=== PATIENT | male | born 2000 | race Two or more races ===

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

== ENCOUNTER 2022-06-20 14:21 | Emergency (ER) | payer OTHER ==
[2022-06-20 14:32] VITALS: BP 116/69; PULSE 79; RESP 18; TEMP 98; BMI 19.5
[2022-06-20] MEDS ORDERED: DIPHTH,PERTUSS(ACELL),TET 0.5 ML DISP.SYRIN IM ONE ×2 (15:15→15:20)
== END 2022-06-20 15:53 | disposition home or self-care (01) ==
LOC: JERFT 14:21
PROC: 0HQGXZZ Repair Left Hand Skin, External Approach (ICD-10-PCS; principal; 2022-06-20)
PROC: 3E0234Z Introduction of Serum, Toxoid and Vaccine into Muscle, Percutaneous Approach (ICD-10-PCS; 2022-06-20)
DX: S61.412A Laceration without foreign body of left hand, initial encounter (principal)
CPT/HCPCS: 90715; 99284-25

== ENCOUNTER 2022-10-23 11:16 | Emergency (ER) | payer OTHER ==
[2022-10-23 11:29] VITALS: BP 124/74; PULSE 71; RESP 18; TEMP 97.9; BMI 18.6
== END 2022-10-23 15:21 | disposition home or self-care (01) ==
LOC: JER 11:16 → JERFT 11:16
DX: G44.319 Acute post-traumatic headache, not intractable (principal); M25.552 Pain in left hip; V49.50XA Passenger injured in collision with unspecified motor vehicles in traffic accident, initial encounter
CPT/HCPCS: 70450-TC; 72125-TC; 73502-TC-LT-FY; 73552-TC-LT-FY; 73562-TC-LT-FY; 99284-25